=== PATIENT | female | born 1980 | race Caucasian/White ===

== ENCOUNTER 2019-08-16 20:16 | Emergency (ER) | payer OTHER, SELFPAY ==
[2019-08-16 20:32] VITALS: BP 116/80; PULSE 57; RESP 15; TEMP 36.6; O2SAT 100; BMI 22.8
--- NOTE | 2019-08-16 20:54 | ED_ITS ---
HPI - Dizziness General Chief Complaint: Dizziness Stated Complaint: dizziness Time Seen by Provider: 08/16/19 20:36 Source: patient Mode of arrival: Family Vehicle Limitations: no limitations History of Present Illness HPI Narrative: 31-year-old otherwise healthy female here for evaluation of a vertigo sensation. Patient states that this morning the event happened when she was lying in bed and rolled to 1 side. Unsure exactly how long the symptoms lasted but they did eventually resolved. States that it has happened several more times throughout the morning and today. Does not know of any other associated symptoms to include chest pain or palpitations. She has not passed out from the events. She states that her head feels full. States she does have fuzzy vision. Does have sinus congestion. No sore throat. Has not tried anything for symptoms prior to arrival Related Data Previous Rx's Medication Instructions Recorded meclizine 25 mg PO BID-TID PRN #10 tab 08/16/19 ondansetron 4 mg PO Q6H PRN #10 tab 08/16/19 Allergies Allergy/AdvReac Type Severity Reaction Status Date / Time No Known Drug Allergies Allergy Verified 08/16/19 20:32 Review of Systems Constitutional Constitutional: Denies fatigue, Denies fever(s), Denies frequent falls, Denies headache(s) and Denies weakness Eyes Eyes: Denies loss of vision Comments: Fussy vision ENT Ears, Nose, Mouth, and Throat: Reports vertigo, Reports dizziness, Denies headache(s), Reports disequilibrium, Reports sinus pressure and Denies sore throat Cardiovascular Cardiovascular: Denies chest pain, Denies palpitations, Denies dyspnea and Denies dyspnea on exertion Respiratory Respiratory: Denies dyspnea and Denies dyspnea on exertion Gastrointestinal Gastrointestinal: Denies abdominal pain and Reports nausea (When the symptoms are current) Musculoskeletal Musculoskeletal: Denies abnormal gait, Denies myalgias, Denies arthralgias and Denies tingling Integumentary/Breasts Skin/Breast: Denies rash Neurologic Neurologic: Denies abnormal movements, Denies abnormal speech, Denies abnormal gait, Denies confusion, Reports vertigo, Reports dizziness, Denies frequent falls, Denies headache(s), Denies focal weakness, Denies loss of vision, Denies restless legs, Denies convulsions, Denies seizure-like activity, Denies tingling, Denies paresthesias, Reports disequilibrium and Denies weakness Psychiatric Psychiatric: Denies confusion Endocrine Endocrine: Denies fatigue and Denies palpitations Hematologic/Lymphatic Hematologic/Lymphatic: Denies easy bleeding and Denies easy bruising Allergic/Immunologic Allergic/Immunologic: Denies urticaria [facility] Medical History Patient denies medical problems (Acute) Social History Smoking Status: Never smoker Social History Smoking Status: Never smoker Exam Initial Vital Signs Initial Vital Signs: Vital Signs Temperature 97.9 F 08/16/19 20:32 Pulse Rate 57 L 08/16/19 20:32 Respiratory Rate 15 08/16/19 20:32 Blood Pressure 116/80 08/16/19 20:32 Pulse Oximetry 100 08/16/19 20:32 Const General: cooperative, healthy appearing, comfortable, well developed, well groomed and No acute distress Orientation: alert, awake and oriented x3 HENMT Head: normal to inspection and normocephalic Ears: TM's normal bilaterally Nose: external nose normal Mouth: oral mucosae normal Throat: posterior oropharynx normal Eyes Pupils: PERRL EOM: EOM intact bilaterally Resp Effort & Inspection: normal respiratory effort Auscultation: clear to auscultation bilaterally Cardio Rate: regular rate Pulses: radial pulses present GI Inspection: non-distended Palpation: soft, No firm and No tender Skin Lesions: no lesions Rashes: no rashes Neuro General: alert and awake Cranial Nerves: CN's II-XI intact bilaterally Cognition: normal cognition Speech: speech normal Gait: normal gait Motor: muscle tone normal throughout Extrem General: normal to inspection and capillary refill normal Psych Appearance: grossly normal and well kempt Scores GCS [place] coma scale eye opening: Spontaneous Kofi coma scale verbal response: Orientated Kofi coma scale motor response: Obey commands Kofi coma scale total score: 15 Course Orders Ordered: Discontinued Medications Meclizine HCl (Antivert) 25 mg PO NOW ONE Stop: 08/16/19 20:55 Last Admin: 08/16/19 20:59 Dose: 25 mg Documented by: [facility] Ondansetron HCl (Zofran Odt) 4 mg SL NOW ONE Stop: 08/16/19 20:55 Last Admin: 08/16/19 20:59 Dose: 4 mg Documented by: [facility] Vital Signs Vital signs: Vital Signs - 8 hr 08/16/19 20:32 08/16/19 21:01 08/16/19 22:07 Temperature 97.9 F 97.8 F Pulse Rate 57 L 68 72 Respiratory Rate 15 16 Blood Pressure 116/80 118/79 Blood Pressure [Right Arm] 120/81 Pulse Oximetry 100 100 100 MDM - Dizziness MDM Narrative Medical decision making narrative: We were able to reproduce the patient's symptoms with a Obdulio-Hallpike maneuver to the right. She was given meclizine and Zofran which did seem to improve her symptoms. Afterwards she was able to ambulate around the ER. I do suspect that her symptoms are peripheral vertigo. I did discuss this with her. She has a normal neurologic exam otherwise. Will hold on any radiologic studies for now. Will send home with symptom treatment. She was given return precautions and follow-up instructions. She expressed understanding and agreement with plan. Discharge Plan Departure Patient Disposition: Home Clinical Impression: Vertigo Discharge Date/Time: 08/16/19 22:08 Instructions: DI for Vertigo Activity Restrictions/Additional Instructions: Be sure to increase your fluid intake. Contact your primary care tomorrow for a follow up. Return to the ER for any new or worsening symptoms. Prescriptions: New ondansetron 4 mg tablet,disintegrating 4 mg PO Q6H PRN (Reason: nausea and vomiting) Qty: 10 RF: 0 meclizine 25 mg tablet 25 mg PO BID-TID PRN (Reason: dizziness) Qty: 10 RF: 0
[2019-08-16] MEDS: ONDANSETRON 4 MG ODT SL (20:59)
[2019-08-16] MEDS: MECLIZINE HCL 12.5 MG TABLET 25 MG PO (20:59)
[2019-08-16 21:01] VITALS: BP 120/81; PULSE 68; O2SAT 100
--- NOTE | 2019-08-16 21:57 | PC.NURSE ---
Pt ambulated around department with steady gait, tolerated well. Pt reports she's feeling better and ready to go home. Dr Grewal aware
[2019-08-16 22:07] VITALS: BP 118/79; PULSE 72; RESP 16; TEMP 36.6; O2SAT 100
== END 2019-08-16 22:08 | disposition home or self-care (01) ==
PROVIDERS: Emergency Provider Emergency Medicine
DX: R42 Dizziness and giddiness (principal)
CPT/HCPCS: 99282; 99283